=== PATIENT | male | born 1950 | race Caucasian/White ===

== ENCOUNTER 2017-08-06 20:11 | Inpatient (IN) | payer MEDICARE ==
[2017-08-06 21:19] LABS: BASO % 0.4 % (0.0-2.0); EOS % 0.1 % (0.0-4.0); HEMATOCRIT 39.9 % (35.0-51.0); LYMPH # 1.2 K/uL (1.0-4.3); LYMPH % 14.8 % (20.0-40.0); MEAN CELL VOLUME 90.1 fl (80.0-94.0); MEAN CORPUSCULAR HEMOGLOBIN 30.1 pg (27.0-31.0); MEAN CORPUSCULAR HGB CONC 33.4 g/dL (33.0-37.0); MEAN PLATELET VOLUME 6.8 fl (7.2-11.7); MONO # 1.1 K/uL (0.0-0.8); MONO % 14.2 % (0.0-10.0); NEUT # 5.5 K/uL (1.8-7.0); NEUT % 70.5 % (50.0-75.0); RED CELL DISTRIBUTION WIDTH 13.1 % (11.5-14.5); WHITE BLOOD COUNT 7.8 K/uL (4.8-10.8)
--- NOTE | 2017-08-06 21:21 | ED PDOC ---
HPI: Male Pain Time Seen by Provider: 08/06/17 20:17 Chief Complaint (Nursing): Male Genitourinary Chief Complaint (Provider): Urinary Retention History Per: Patient History/Exam Limitations: no limitations Onset/Duration Of Symptoms: Days (x 8) Current Symptoms Are (Timing): Still Present Additional Complaint(s): 67 year old male with a past medical history of prostate disease presents to the ED with urinary retention onset 8 days. He reports increasing difficulty urinating, increasing lower abdomen discomfort and flank pain. He previously had to have a Luo catheter in place and has not had issues with prostate disease in a few years. Noticed hematuria in the last two days. Patient's last urine output was bloody at 19:30. He states that "it just spills out". Denies fever, chills, nausea, vomiting, diarrhea and constipation. PMD: Dr. Jesse Almodovar MD Past Medical History Reviewed: Historical Data, Nursing Documentation, Vital Signs Vital Signs: Last Vital Signs Temp 97.6 F 08/06/17 20:26 Pulse 104 H 08/06/17 20:26 Resp 18 08/06/17 20:26 BP 131/90 08/06/17 20:26 Pulse Ox 96 08/06/17 20:26 - Medical History PMH: Atrial Fibrillation, Diabetes, HTN Other PMH: prostate disease - Family History Family History: States: Hypertension - Social History Current smoker - smoking cessation education provided: No Alcohol: None Drugs: Denies - Allergies Allergies/Adverse Reactions: Allergies Allergy/AdvReac Type Severity Reaction Status Date / Time No Known Allergies Allergy Verified 08/06/17 20:26 Review of Systems ROS Statement: Except As Marked, All Systems Reviewed And Found Negative (as per HPI) Constitutional: Negative for: Fever, Chills Gastrointestinal: Positive for: Other (increasing lower abdominal discomfort). Negative for: Nausea, Vomiting, Diarrhea, Constipation Genitourinary Male: Positive for: Hematuria, Other (difficulty urinating) Musculoskeletal: Positive for: Other (flank pain) Physical Exam - Reviewed Nursing Documentation Reviewed: Yes Vital Signs Reviewed: Yes - Physical Exam Appears: Positive for: Non-toxic, In Acute Distress Head Exam: Positive for: ATRAUMATIC, NORMOCEPHALIC Skin: Positive for: Warm, Dry, Pallor Eye Exam: Positive for: EOMI, PERRL ENT: Positive for: Pharynx Is (clear), Other (moist mucus membranes) Neck: Positive for: Painless ROM, Supple Cardiovascular/Chest: Positive for: Chest Non Tender, Tachycardia. Negative for : Murmur Respiratory: Positive for: Normal Breath Sounds. Negative for: Respiratory Distress Gastrointestinal/Abdominal: Positive for: Bowel Sounds, Soft, Tenderness ( suprapubic). Negative for: Mass, Distended, Guarding, Rebound Back: Positive for: L CVA Tenderness (mild), R CVA Tenderness (mild) Extremity: Positive for: Normal ROM. Negative for: Pedal Edema Lymphatic: Negative for: Adenopathy Neurologic/Psych: Positive for: Alert. Negative for: Motor/Sensory Deficits - Laboratory Results Result Diagrams: 08/06/17 21:14 08/06/17 21:14 - ECG O2 Sat by Pulse Oximetry: 96 (RA) Pulse Ox Interpretation: Normal Medical Decision Making Medical Decision Making: Time: 20:40 Impression: urinary retention Differential diagnoses include but are not limited to kidney stones, cystitis, UTI, pyelonephritis Initial Plan: --CMP --Urine dipstick --CBC with differentials --Urine culture --Urinalysis --Urinary catheter inserted. 2100 Pt developed fever in ER. --CT abdomen pelvis without contrast --Rocephin IV 1 gm duplex --Blood culture --Lactic acid, plasma --Tylenol 975 mg PO Accession No. : [id number] Patient Name / ID : EVELYN INMAN / [id number] Exam Date : 08/06/2017 22:18:27 ( Approved ) Study Comment : Sex / Age : M / 67Y Creator : Enoch Merino MD Dictator : Smeller : Mess Attendant Crew : Enoch Merino MD Approver2 : Report Date : 08/06/2017 23:06:00 My Comment : [facility] Division of Radiology [address] [place], [place] [id number] Tel. no. Patient Name: STORM RIVAS Pt. Address: [address] [place] [address] Rec #: [id number] [place] [id number] Ordering Dr: Don STEPHENS, Christel Lindsay Pt HOME Order Location: [facility] : 1950 Male Age: 67 Order #: [id number] Reason for exam: flank pain fever CT Scan ABD PELVIS W/O PO OR IV CONT Exam Date: 08/06/17 This imaging exam was performed at [facility] ADDENDUM Addendum created by Enoch Merino MD on 08/06/2017 11:27:37 PM EST IMPRESSION: 1. Apparent mild asymmetric bladder wall thickening with minimal intraluminal air. Perinephric stranding, nonspecific. Clinical correlation is needed. 2. Moderate LEFT inguinal hernia containing fat and portion of bladder. 3. Incidental/non-acute findings are described above. Initial report created on 08/06/2017 11:06:16 PM EST EXAM: CT Abdomen and Pelvis Without Intravenous Contrast CLINICAL HISTORY: 67 years old, male; Signs and symptoms; Other: Urinary retention; Prior surgery; Surgery date: 6+ months; Surgery type: Prostate surgery; Additional info: Flank pain fever, hematuria x 8days TECHNIQUE: Axial computed tomography images of the abdomen and pelvis without intravenous contrast. All CT scans at this facility use one or more dose reduction techniques, viz.: automated exposure control; ma/kV adjustment per patient size (including targeted exams where dose is matched to indication; i.e. head); or iterative reconstruction technique. Coronal and sagittal reformatted images were created and reviewed. COMPARISON: No relevant prior studies available. FINDINGS: Limitations: Lack of intravenous contrast. Motion artifact - mild. Lower thorax: No acute findings. ABDOMEN: Liver: Unremarkable. Gallbladder and bile ducts: No calcified stones. No ductal dilation. Pancreas: Unremarkable. No ductal dilation. Spleen: No splenomegaly. Adrenals: No mass. Kidneys and ureters: Mild stranding about kidneys. No renal calculi. Mild pelviectasis of both kidneys. Stomach and bowel: Scattered diverticula within colon. No associated inflammatory stranding. No definite mural thickening. No obstruction. Appendix: Normal caliber. No inflammation. PELVIS: Bladder: Luo catheter. Small amount of air within lumen. Apparent mild asymmetric bladder wall thickening. Incomplete distention, limiting evaluation. No stones. Reproductive: Mildly enlarged prostate. ABDOMEN and PELVIS: Intraperitoneal space: No significant fluid collection. No free air. Bones/joints: Degenerative changes of spine. No acute fracture. Soft tissues: Small RIGHT inguinal hernia containing fat. Small RIGHT spigelian hernia containing fat. Tiny LEFT spigelian hernia containing fat. Moderate LEFT inguinal hernia containing fat and portion of bladder. Surgical clips about LEFT lower quadrant/inguinal region. Vasculature: Unremarkable. No aneurysm. Lymph nodes: No pathologically enlarged lymph nodes. IMPRESSION: 1. Apparent mild asymmetric bladder wall thickening with minimal intraluminal air. Perinephric stranding, nonspecific. Clinical correlation is needed. 2. Moderate LEFT ovary containing fat and portion of bladder. 3. Incidental/non-acute findings are described above. Addendum Dictated By: Enoch Merino MD Addendum Dictated Date Time:08/06/1712/18/2326 Addendum Signed by:Enoch Merino MD Addendum signed Date Time: 08/06/172326 Addendum Transcribed By: ANABELLE Addendum Transcribed Date Time: 08/06/1712/18/2326 ACYP02/VRD Pt with UTI and tachycardia with fever, c/w early sepsis. On reeval pt reports he feels relatively the same as on arrival. Will hospitalize for sepsis and UTI/ pyelonephritis. STEPHANIE FOOTE resident. Scribe Attestation: Documented by Sarah Wesley, acting as a scribe for Arpit Jiménez MD Provider Scribe Attestation: All medical record entries made by the Scribe were at my direction and personally dictated by me. I have reviewed the chart and agree that the record accurately reflects my personal performance of the history, physical exam, medical decision making, and the department course for this patient. I have also personally directed, reviewed, and agree with the discharge instructions and disposition Disposition - Clinical Impression Clinical Impression: Sepsis, Urinary tract infection, Urinary retention, Pyelonephritis Counseled Patient/Family Regarding: Studies Performed, Diagnosis - Disposition Disposition: Routine/Home Disposition Time: 23:00 Condition: FAIR Forms: ybuy (Afghan) - Pt Status Changed To: Hospital Disposition Of: Inpatient - Admit Certification Admit to Inpatient:: After my assessment, the patient will require hospitalization for at least two midnights. This is because of the severity of symptoms shown, intensity of services needed, and/or the medical risk in this patient being treated as an outpatient. - POA Present On Arrival: None
[2017-08-06 21:32] LABS: ALB/GLOB RATIO 1.1 (1.0-2.1); ALKALINE PHOSPHATASE 72 U/L (38-126); ALT/SGPT 34 U/L (21-72); AST/SGOT 25 U/L (17-59); BILIRUBIN,TOTAL 0.7 mg/dl (0.2-1.3); BLOOD UREA NITROGEN 16 mg/dl (9-20); CALCIUM 8.6 mg/dL (8.4-10.2); CARBON DIOXIDE 25 mmol/L (22-30); CHLORIDE 100 mmol/L (98-107); GFR AFRICAN-AMERICAN > 60; GLUCOSE,RANDOM 104 mg/dL (75-110); POTASSIUM 3.7 MMOL/L (3.6-5.0); SODIUM 137 mmol/l (132-148); TOTAL PROTEIN 7.2 G/DL (6.3-8.2)
[2017-08-06] MEDS ORDERED: cefTRIAXone IV 1 gm in Dextros 50 ML IVPB STA (21:33)
[2017-08-06] MEDS ORDERED: Sodium Chloride 0.9% 500 ML IV STA (21:34)
[2017-08-06 22:00] LABS: RBC URINE 11 /hpf (0-3); URINE BACTERIA MANY (<OCC); URINE BILIRUBIN NEGATIVE (NEGATIVE); URINE BLOOD LARGE (NEGATIVE); URINE COLOR YELLOW (YELLOW); URINE GLUCOSE (UA) NEG (Normal); URINE KETONE TRACE mg/dL (NEGATIVE); URINE LEUKOCYTE ESTERASE LARGE Leu/uL (Negative); URINE PROTEIN 30 mg/dL (NEGATIVE); URINE UROBILINOGEN 0.2-1.0 mg/dL (0.2-1.0); WBC URINE 47 /hpf (0-5)
[2017-08-06] MEDS ORDERED: cefTRIAXone IV 1 gm in Dextros 50 ML IVPB ONE (22:00)
--- NOTE | 2017-08-06 23:06 | CT ---
EXAM: CT Abdomen and Pelvis Without Intravenous Contrast CLINICAL HISTORY: 67 years old, male; Signs and symptoms; Other: Urinary retention; Prior surgery; Surgery date: 6+ months; Surgery type: Prostate surgery; Additional info: Flank pain fever, hematuria x 8days TECHNIQUE: Axial computed tomography images of the abdomen and pelvis without intravenous contrast. All CT scans at this facility use one or more dose reduction techniques, viz.: automated exposure control; ma/kV adjustment per patient size (including targeted exams where dose is matched to indication; i.e. head); or iterative reconstruction technique. Coronal and sagittal reformatted images were created and reviewed. COMPARISON: No relevant prior studies available. FINDINGS: Limitations: Lack of intravenous contrast. Motion artifact - mild. Lower thorax: No acute findings. ABDOMEN: Liver: Unremarkable. Gallbladder and bile ducts: No calcified stones. No ductal dilation. Pancreas: Unremarkable. No ductal dilation. Spleen: No splenomegaly. Adrenals: No mass. Kidneys and ureters: Mild stranding about kidneys. No renal calculi. Mild pelviectasis of both kidneys. Stomach and bowel: Scattered diverticula within colon. No associated inflammatory stranding. No definite mural thickening. No obstruction. Appendix: Normal caliber. No inflammation. PELVIS: Bladder: Luo catheter. Small amount of air within lumen. Apparent mild asymmetric bladder wall thickening. Incomplete distention, limiting evaluation. No stones. Reproductive: Mildly enlarged prostate. ABDOMEN and PELVIS: Intraperitoneal space: No significant fluid collection. No free air. Bones/joints: Degenerative changes of spine. No acute fracture. Soft tissues: Small RIGHT inguinal hernia containing fat. Small RIGHT spigelian hernia containing fat. Tiny LEFT spigelian hernia containing fat. Moderate LEFT inguinal hernia containing fat and portion of bladder. Surgical clips about LEFT lower quadrant/inguinal region. Vasculature: Unremarkable. No aneurysm. Lymph nodes: No pathologically enlarged lymph nodes. IMPRESSION: 1. Apparent mild asymmetric bladder wall thickening with minimal intraluminal air. Perinephric stranding, nonspecific. Clinical correlation is needed. 2. Moderate LEFT ovary containing fat and portion of bladder. 3. Incidental/non-acute findings are described above.
--- NOTE | 2017-08-07 00:18 | CP.PCM.HP ---
History of Present Illness - History of Present Illness History of Present Illness: 67 year old male with PMH of atrial fibrillation, BPH presented with complaint of 8 days of hematuria, with associated urinary frequency and dysuria as well as difficulty urinating. First episode of hematuria was eight days ago, intially gross blood, now with normalized color in ED. Reports still had hematuria this morning . Two days ago began having urinary frequency and dysuria with persistent hematuria. He was straining to void, with feeling of incomplete bladder emptying. Denies having fevers, chills, abdominal pain, back pain, flank pain, night sweats, nausea or vomiting. No difficulty urinating or nocturia prior to onset of hematuria. Does not smoke. He takes metoprolol and losartan for his BP. Patient reports history of TURP x 2 over 10 years ago. Urologist then was Dr. Whitney, last appt was in 2004. PMD: Dr. Almodovar Manufacturing Team Leader: Dr. Sumner Urologist: Dr. Whitney PMH: HTN, AFib, BPH Medications: Metoprolol, Losartan Allergies: NKDA Social: denies tobacco/illicit drugs, +social etoh use Family Hx: Father, mother and siblings: all reported to have some type of cancer ; not sure of their diagnoses. Surgical hx: TURP x 2 code status: full code. Present on Admission - Present on Admission Any Indicators Present on Admission: No Review of Systems - Constitutional Constitutional: absent: Chills, Fever, Weakness - EENT Eyes: absent: Blurred Vision Ears: absent: Dizziness - Cardiovascular Cardiovascular: absent: Chest Pain, Dyspnea, Palpitations, Pedal Edema - Gastrointestinal Gastrointestinal: absent: Abdominal Pain, Diarrhea, Nausea, Vomiting - Genitourinary Genitourinary: Dysuria, Hematuria, Nocturia, Urinary Frequency, Urinary Urgency , Hx /Renal Surgery. absent: Flank Pain, Bladder Distension - Musculoskeletal Musculoskeletal: absent: Muscle Weakness - Neurological Neurological: absent: Dizziness, Headaches Past Patient History - Infectious Disease Hx of Infectious Diseases: None - Tetanus Immunizations Tetanus Immunization: Unknown - Past Social History Alcohol: None Drugs: Denies - CARDIAC Hx Atrial Fibrillation: Yes Hx Hypertension: Yes - PSYCHIATRIC Hx Substance Use: No - SURGICAL HISTORY Hx Surgeries: Yes Other/Comment: Hx TURP 1996 - ANESTHESIA Hx Anesthesia: Yes Hx Anesthesia Reactions: No Hx Malignant Hyperthermia: No Meds Allergies/Adverse Reactions: Allergies Allergy/AdvReac Type Severity Reaction Status Date / Time No Known Allergies Allergy Verified 08/06/17 20:26 Physical Exam - Constitutional Appears: No Acute Distress - Head Exam Head Exam: ATRAUMATIC, NORMAL INSPECTION, NORMOCEPHALIC - Eye Exam Eye Exam: EOMI, Normal appearance, PERRL - ENT Exam ENT Exam: Mucous Membranes Moist, Normal Exam - Respiratory Exam Respiratory Exam: Clear to Auscultation Bilateral, NORMAL BREATHING PATTERN. absent: Decreased Breath Sounds, Prolonged Expiratory Phase, Rales, Rhonchi, Wheezes - Cardiovascular Exam Cardiovascular Exam: REGULAR RHYTHM, RRR, +S1, +S2 - GI/Abdominal Exam GI & Abdominal Exam: Hypoactive Bowel Sounds, Soft. absent: Distended, Guarding , Tenderness Additional comments: jenkins bag: draining clear yellow urine - Rectal Exam Rectal Exam: Deferred - Extremities Exam Extremities exam: Negative for: joint swelling, pedal edema - Back Exam Back exam: NORMAL INSPECTION. absent: CVA tenderness (L), CVA tenderness (R), rash noted - Neurological Exam Neurological exam: Alert, CN II-XII Intact, Oriented x3 - Psychiatric Exam Psychiatric exam: Normal Affect, Normal Mood - Skin Skin Exam: Dry, Intact, Normal Color, Warm Results - Vital Signs Recent Vital Signs: Last Vital Signs Temp 99.8 F H 08/06/17 23:21 Pulse 89 08/06/17 23:21 Resp 18 08/06/17 23:21 BP 112/70 08/06/17 23:21 Pulse Ox 96 08/06/17 23:58 - Labs Result Diagrams: 08/06/17 21:14 08/06/17 21:14 Labs: Laboratory Results - last 24 hr 08/06/17 08/06/17 08/06/17 21:14 21:14 21:40 WBC 7.8 RBC 4.43 Hgb 13.3 Hct 39.9 MCV 90.1 MCH 30.1 MCHC 33.4 RDW 13.1 Plt Count 248 MPV 6.8 L Neut % (Auto) 70.5 Lymph % (Auto) 14.8 L Howard % (Auto) 14.2 H Eos % (Auto) 0.1 Baso % (Auto) 0.4 Neut # 5.5 Lymph # 1.2 Howard # 1.1 H Eos # 0.0 Baso # 0.0 Sodium 137 Potassium 3.7 Chloride 100 Carbon Dioxide 25 Anion Gap 16 BUN 16 Creatinine 0.9 Est GFR ( Amer) > 60 Est GFR (Non-Af Amer) > 60 Random Glucose 104 Lactic Acid Calcium 8.6 Total Bilirubin 0.7 AST 25 ALT 34 Alkaline Phosphatase 72 Total Protein 7.2 Albumin 3.8 Globulin 3.4 Albumin/Globulin Ratio 1.1 Urine Color Yellow Urine Clarity Cloudy Urine pH 6.0 Ur Specific [place] 1.006 Urine Protein 30 Urine Glucose (UA) Neg Urine Ketones Trace Urine Blood Large Urine Nitrate Positive H Urine Bilirubin Negative Urine Urobilinogen 0.2-1.0 Ur Leukocyte Esterase Large Urine RBC (Auto) 11 H Urine Microscopic WBC 47 H Urine Bacteria Many H 08/06/17 23:50 WBC RBC Hgb Hct MCV MCH MCHC RDW Plt Count MPV Neut % (Auto) Lymph % (Auto) Howard % (Auto) Eos % (Auto) Baso % (Auto) Neut # Lymph # Howard # Eos # Baso # Sodium Potassium Chloride Carbon Dioxide Anion Gap BUN Creatinine Est GFR ( Amer) Est GFR (Non-Af Amer) Random Glucose Lactic Acid 0.7 Calcium Total Bilirubin AST ALT Alkaline Phosphatase Total Protein Albumin Globulin Albumin/Globulin Ratio Urine Color Urine Clarity Urine pH Ur Specific [place] Urine Protein Urine Glucose (UA) Urine Ketones Urine Blood Urine Nitrate Urine Bilirubin Urine Urobilinogen Ur Leukocyte Esterase Urine RBC (Auto) Urine Microscopic WBC Urine Bacteria - Imaging and Cardiology CT scan - abdomen Status: Image reviewed by me, Report reviewed by me Additional comment: CT Scan ABD PELVIS W/O PO OR IV CONT Exam Date: 08/06/17 This imaging exam was performed at [facility] ADDENDUM Addendum created by Enoch Merino MD on 08/06/2017 11:27:37 PM EST IMPRESSION: 1. Apparent mild asymmetric bladder wall thickening with minimal intraluminal air. Perinephric stranding, nonspecific. Clinical correlation is needed. 2. Moderate LEFT inguinal hernia containing fat and portion of bladder. 3. Incidental/non-acute findings are described above. Initial report created on 08/06/2017 11:06:16 PM EST EXAM: CT Abdomen and Pelvis Without Intravenous Contrast CLINICAL HISTORY: 67 years old, male; Signs and symptoms; Other: Urinary retention; Prior surgery; Surgery date: 6+ months; Surgery type: Prostate surgery; Additional info: Flank pain fever, hematuria x 8days TECHNIQUE: Axial computed tomography images of the abdomen and pelvis without intravenous contrast. All CT scans at this facility use one or more dose reduction techniques, viz.: automated exposure control; ma/kV adjustment per patient size (including targeted exams where dose is matched to indication; i.e. head); or iterative reconstruction technique. Coronal and sagittal reformatted images were created and reviewed. COMPARISON: No relevant prior studies available. FINDINGS: Limitations: Lack of intravenous contrast. Motion artifact - mild. Lower thorax: No acute findings. ABDOMEN: Liver: Unremarkable. Gallbladder and bile ducts: No calcified stones. No ductal dilation. Pancreas: Unremarkable. No ductal dilation. Spleen: No splenomegaly. Adrenals: No mass. Kidneys and ureters: Mild stranding about kidneys. No renal calculi. Mild pelviectasis of both kidneys. Stomach and bowel: Scattered diverticula within colon. No associated inflammatory stranding. No definite mural thickening. No obstruction. Appendix: Normal caliber. No inflammation. PELVIS: Bladder: Jenkins catheter. Small amount of air within lumen. Apparent mild asymmetric bladder wall thickening. Incomplete distention, limiting evaluation. No stones. Reproductive: Mildly enlarged prostate. ABDOMEN and PELVIS: Intraperitoneal space: No significant fluid collection. No free air. Bones/joints: Degenerative changes of spine. No acute fracture. Soft tissues: Small RIGHT inguinal hernia containing fat. Small RIGHT spigelian hernia containing fat. Tiny LEFT spigelian hernia containing fat. Moderate LEFT inguinal hernia containing fat and portion of bladder. Surgical clips about LEFT lower quadrant/inguinal region. Vasculature: Unremarkable. No aneurysm. Lymph nodes: No pathologically enlarged lymph nodes. IMPRESSION: 1. Apparent mild asymmetric bladder wall thickening with minimal intraluminal air. Perinephric stranding, nonspecific. Clinical correlation is needed. 2. Moderate LEFT ovary containing fat and portion of bladder. 3. Incidental/non-acute findings are described above. Addendum Dictated By: Enoch Merino MD Addendum Dictated Date Time:08/06/1712/18/2326 Addendum Signed by:Enoch Merino MD Addendum signed Date Time: 08/06/172326 Addendum Transcribed By: ANABELLE Addendum Transcribed Date Time: 08/06/1712/18/2326 ACYP02/SARAH BETH EXAM: CT Abdomen and Pelvis Without Intravenous Contrast CLINICAL HISTORY: 67 years old, male; Signs and symptoms; Other: Urinary retention; Prior surgery; Surgery date: 6+ months; Surgery type: Prostate surgery; Additional info: Flank pain fever, hematuria x 8days TECHNIQUE: Axial computed tomography images of the abdomen and pelvis without intravenous contrast. All CT scans at this facility use one or more dose reduction techniques, viz.: automated exposure control; ma/kV adjustment per patient size (including targeted exams where dose is matched to indication; i.e. head); or iterative reconstruction technique. Coronal and sagittal reformatted images were created and reviewed. COMPARISON: No relevant prior studies available. FINDINGS: Limitations: Lack of intravenous contrast. Motion artifact - mild. Lower thorax: No acute findings. ABDOMEN: Liver: Unremarkable. Gallbladder and bile ducts: No calcified stones. No ductal dilation. Pancreas: Unremarkable. No ductal dilation. Spleen: No splenomegaly. Adrenals: No mass. Kidneys and ureters: Mild stranding about kidneys. No renal calculi. Mild pelviectasis of both kidneys. Stomach and bowel: Scattered diverticula within colon. No associated inflammatory stranding. No definite mural thickening. No obstruction. Appendix: Normal caliber. No inflammation. PELVIS: Bladder: Jenkins catheter. Small amount of air within lumen. Apparent mild asymmetric bladder wall thickening. Incomplete distention, limiting evaluation. No stones. Reproductive: Mildly enlarged prostate. ABDOMEN and PELVIS: Intraperitoneal space: No significant fluid collection. No free air. Bones/joints: Degenerative changes of spine. No acute fracture. Soft tissues: Small RIGHT inguinal hernia containing fat. Small RIGHT spigelian hernia containing fat. Tiny LEFT spigelian hernia containing fat. Moderate LEFT inguinal hernia containing fat and portion of bladder. Surgical clips about LEFT lower quadrant/inguinal region. Vasculature: Unremarkable. No aneurysm. Lymph nodes: No pathologically enlarged lymph nodes. IMPRESSION: 1. Apparent mild asymmetric bladder wall thickening with minimal intraluminal air. Perinephric stranding, nonspecific. Clinical correlation is needed. 2. Moderate LEFT ovary containing fat and portion of bladder. 3. Incidental/non-acute findings are described above. Dictated By: Enoch Merino MD Dictated Date/Time: 08/06/172305 Signed By: Enoch Merino MD Date Signed: [id number] Transcribed By: ANABELLE Transcribe Date/Time : 08/06/172305 ACYP02/SARAH BETH Assessment & Plan (1) Complicated UTI (urinary tract infection) Assessment and Plan: 67 year old male with PMH of HTN, AFIB, BPH s/p TURP x 2 presented with hematuria x 8 days with associated urinary frequency and dysuria, admitted with complicated UTI and difficulty urinating. No back or flank pain. Pt afebrile. Unlikely pyelonephritis or cystitis. No history of prostate or bladder CA, however hematuria is concerning. Labs and CT abdomen reviewed. No leukocytosis, anemia or renal calculi, no hydronephrosis, + mild perinephric stranding Patient was febrile in ED with TMAX: 101.7, HR: 104, UA + Nitrite, +Leukocyte esterase: Large, WBC: 47. RBC: 11. Lactic ACid: 0.7 Patient given one dose of rocephin in ED. Start treatment for complicated UTI with Zosyn. Will likely need urology consult, seen by Dr. Whitney in the past as outpatient Tylenol / Toradol for pain Status: Acute (2) Hematuria Assessment and Plan: etiology unknown, appears to be have improved Status: Acute (3) HTN (hypertension) Assessment and Plan: controlled with toprol xl and losartan Status: Chronic (4) Atrial fibrillation Assessment and Plan: on toprol xl, cardiolgist is Dr. Sumner. not on anticoagulation Status: Chronic (5) DVT prophylaxis Assessment and Plan: scds- pt w/ hematuria Status: Acute
[2017-08-07] MEDS ORDERED: Pneumococcal 23-Valent Vaccine IM ONE (02:53)
[2017-08-07] MEDS: Lactated Ringer's 1,000 ML IV SCH ×4 (03:00→22:45)
[2017-08-07] MEDS ORDERED: Piperacillin/Tazobact 3.375 GM in Dextrose 5% In Water 100 ML IVPB SCH (04:00)
[2017-08-07] MEDS: Piperacillin/Tazobact 3.375 GM in Sodium Chloride 0.9% 100 ML IVPB SCH ×4 (04:50→22:19)
[2017-08-07] MEDS: Metoprolol Succinate 50 mg XL Tab PO SCH (09:06)
[2017-08-08] MEDS: Piperacillin/Tazobact 3.375 GM in Sodium Chloride 0.9% 100 ML IVPB SCH ×4 (03:59→21:37)
[2017-08-08] MEDS: Lactated Ringer's 1,000 ML IV SCH ×3 (03:59→19:56)
[2017-08-08 07:36] LABS: BASO # 0.1 K/uL (0.0-0.2); BASO % 0.8 % (0.0-2.0); EOS % 0.6 % (0.0-4.0); HEMATOCRIT 38.1 % (35.0-51.0); LYMPH # 1.4 K/uL (1.0-4.3); LYMPH % 16.7 % (20.0-40.0); MEAN CORPUSCULAR HEMOGLOBIN 30.2 pg (27.0-31.0); MEAN CORPUSCULAR HGB CONC 32.8 g/dL (33.0-37.0); MEAN PLATELET VOLUME 7.5 fl (7.2-11.7); MONO # 1.7 K/uL (0.0-0.8); MONO % 19.2 % (0.0-10.0); NEUT # 5.4 K/uL (1.8-7.0); NEUT % 62.7 % (50.0-75.0); NRBC % 0.1 % (0.0-0.0); RED CELL DISTRIBUTION WIDTH 13.3 % (11.5-14.5); WHITE BLOOD COUNT 8.6 K/uL (4.8-10.8)
[2017-08-08] MEDS: Metoprolol Succinate 50 mg XL Tab PO SCH (09:11)
--- NOTE | 2017-08-08 10:50 | CP.PCM.PN ---
Objective - Vital Signs/Intake and Output Vital Signs (last 24 hours): Temp Pulse Resp BP Pulse Ox 97.3 F L 70 20 117/69 99 08/08/17 08:17 08/08/17 09:11 08/08/17 08:17 08/08/17 09:11 08/08/17 08:17 Intake and Output: 08/08/17 08/08/17 06:59 18:59 Intake Total 500 1640 Output Total 550 2300 Balance -50 -660 - Medications Medications: Current Medications Acetaminophen (Tylenol 325mg Tab) 650 mg PO Q6 PRN PRN Reason: Fever >100.4 F Last Admin: 08/08/17 00:05 Dose: 650 mg Acetaminophen (Tylenol 325mg Tab) 650 mg PO Q6 PRN PRN Reason: Pain, Mild (1-3) Enoxaparin Sodium (Lovenox) 40 mg SC DAILY [facility] PRN Reason: Protocol Lactated Ringer's (Lactated Ringer's) 1,000 mls @ 100 mls/hr IV .Q10H [facility] Last Admin: 08/08/17 09:12 Dose: Not Given Piperacillin Sod/Tazobactam (Sod 3.375 gm/ Sodium Chloride) 100 mls @ 100 mls/ hr IVPB Q6 [facility] PRN Reason: Protocol Last Admin: 08/08/17 09:10 Dose: 100 mls/hr Ketorolac Tromethamine (Toradol) 15 mg IVP Q6 PRN PRN Reason: Pain, moderate (4-7) Last Admin: 08/07/17 04:58 Dose: 15 mg Losartan Potassium (Cozaar) 50 mg PO DAILY [facility] Last Admin: 08/08/17 09:11 Dose: 50 mg Metoprolol Succinate (Toprol Xl) 50 mg PO DAILY [facility] Last Admin: 08/08/17 09:11 Dose: 50 mg - Labs Labs: 08/08/17 06:30 08/06/17 21:14 Assessment and Plan - Assessment and Plan (Free Text) Assessment: Assessment and Plan: 67 year old male with PMH of HTN, AFIB, BPH s/p TURP x 2 presented with hematuria x 8 days with associated urinary frequency and dysuria, admitted with Pyelonephritis and difficulty urinating. Plan for Urology consult today. #Pyelonephritis -Still spiking fevers intermittently, Tmax 102.5. No CVA tenderness. No urinary symptoms. -No leukocytosis, UA Nitrate positive - C/W Zosyn Day 2 -BCx repeated. UCx + for Gram negative rods, awaiting sensitivities -Abdominal CT: Remarkable for + Mild Perinephric stranding -ID consulted as pt is febrile despite ABX treatment. -Tylenol / Toradol for pain # Urinary retention, acute -Has hx of TURP -Urology consult appreciated, will keep jenkins in place #Hematuria, resolved -Pt appears to have improved -Etiology unknown. Could be due to Will likely need cystoscopy OP -H/H stable #HTN -Normotensive -C/w Metropolol and Losartan #Afibb -Pt mentioned Afibb on admission, no document EKG with arrythmia. EKG done on admission, NSR. -No anticoagulation #DVT -SCD's -Levonox 40mg SC #Diet -Regular Stable Full Code (5) DVT prophylaxis Assessment and Plan: scds- pt w/ hematuria Status: Acute
--- NOTE | 2017-08-08 12:09 | US ---
PROCEDURE: Ultrasound of the Kidneys HISTORY: UTI, recurring fever, back pain COMPARISON: None available. TECHNIQUE: Grayscale imaging was performed. FINDINGS: RIGHT KIDNEY: Measures: 11.9 cm. Normal in size, contour and echogenicity. No stone, solid mass lesion or hydronephrosis visualized. LEFT KIDNEY: Measures: 10.4 cm. Normal in size, contour and echogenicity. No stone, solid mass lesion or hydronephrosis visualized. OTHER FINDINGS: None. IMPRESSION: Normal examination.
--- NOTE | 2017-08-08 12:25 | CARD ---
APPROVED REPORT EKG Measurement Heart [id number] <Conclusion> Normal sinus rhythm Left axis deviation Moderate voltage criteria for LVH, may be normal variant Abnormal ECG
--- NOTE | 2017-08-08 13:09 | RAD ---
PROCEDURE: Radiographs of the Lumbar Spine. HISTORY: back pain COMPARISON: No prior. FINDINGS: BONES: There is mild dextrocurvature in the lumbar spine. There is 4 mm degenerative retrolisthesis of L3 on L4. There is normal lumbar lordosis. There is no acute fracture, spondylolysis or spondylolisthesis. There is mild diffuse bone demineralization. DISC SPACES: There is multilevel degenerative disc disease with anterior osteophytes, reduced disc heights and multilevel facet arthropathy, worse at L3-4 and L4-5. OTHER FINDINGS: There are no pathologic soft tissue calcifications. Both sacroiliac joints are normal the IMPRESSION: No acute fracture or spondylolysis. Multilevel degenerative disc disease, worse at L3-4 and L4-5.
--- NOTE | 2017-08-08 14:17 | CP.PCM.PN ---
Subjective - Date & Time of Evaluation Date of Evaluation: 08/08/17 Time of Evaluation: 07:00 - Subjective Subjective: Pt complained of mild lower back pain. Feels chills overnight. Denies dysuria, abdominal pain, flank pain, n/v, Objective - Vital Signs/Intake and Output Vital Signs (last 24 hours): Temp Pulse Resp BP Pulse Ox 97.3 F L 70 20 117/69 99 08/08/17 08:17 08/08/17 09:11 08/08/17 08:17 08/08/17 09:11 08/08/17 08:17 Intake and Output: 08/08/17 08/08/17 06:59 18:59 Intake Total 500 1640 Output Total 550 3600 Balance -50 -1960 - Medications Medications: Current Medications Acetaminophen (Tylenol 325mg Tab) 650 mg PO Q6 PRN PRN Reason: Fever >100.4 F Last Admin: 08/08/17 00:05 Dose: 650 mg Acetaminophen (Tylenol 325mg Tab) 650 mg PO Q6 PRN PRN Reason: Pain, Mild (1-3) Enoxaparin Sodium (Lovenox) 40 mg SC DAILY [facility] PRN Reason: Protocol Lactated Ringer's (Lactated Ringer's) 1,000 mls @ 100 mls/hr IV .Q10H [facility] Last Admin: 08/08/17 09:12 Dose: Not Given Piperacillin Sod/Tazobactam (Sod 3.375 gm/ Sodium Chloride) 100 mls @ 100 mls/ hr IVPB Q6 [facility] PRN Reason: Protocol Last Admin: 08/08/17 09:10 Dose: 100 mls/hr Ketorolac Tromethamine (Toradol) 15 mg IVP Q6 PRN PRN Reason: Pain, moderate (4-7) Last Admin: 08/07/17 04:58 Dose: 15 mg Losartan Potassium (Cozaar) 50 mg PO DAILY [facility] Last Admin: 08/08/17 09:11 Dose: 50 mg Metoprolol Succinate (Toprol Xl) 50 mg PO DAILY [facility] Last Admin: 08/08/17 09:11 Dose: 50 mg Tamsulosin HCl (Flomax) 0.4 mg PO DAILY [facility] Last Admin: 08/08/17 13:25 Dose: 0.4 mg - Labs Labs: 08/08/17 06:30 08/06/17 21:14 - Constitutional Appears: Well, Non-toxic, No Acute Distress - Head Exam Head Exam: ATRAUMATIC - ENT Exam ENT Exam: Mucous Membranes Dry, Mucous Membranes Moist - Neck Exam Neck Exam: absent: Lymphadenopathy - Respiratory Exam Respiratory Exam: Clear to Ausculation Bilateral, Rales, Wheezes, NORMAL BREATHING PATTERN. absent: Accessory Muscle Use - Cardiovascular Exam Cardiovascular Exam: REGULAR RHYTHM, +S1, +S2. absent: Murmur - GI/Abdominal Exam GI & Abdominal Exam: Soft, Normal Bowel Sounds. absent: Tenderness - Extremities Exam Extremities Exam: absent: Calf Tenderness, Pedal Edema - Back Exam Back Exam: NORMAL INSPECTION. absent: CVA tenderness (L), CVA tenderness (R), paraspinal tenderness - Neurological Exam Neurological Exam: Alert, Awake, Oriented x3 - Psychiatric Exam Psychiatric exam: Normal Mood Assessment and Plan - Assessment and Plan (Free Text) Assessment: 67 year old male with PMH of HTN, AFIB, BPH s/p TURP x 2 presented with hematuria and urinary retention admitted for Pyelonephritis. #Pyelonephritis -no CVA tenderness or urinary symptoms today. Pt was complaining of mild back pain this morning, new onset -Febrile, tmax 102.5. No leukocytosis. UA +nitrates, UCx + Gram NEgative ROds ( prelim) -Abdominal CT- remarkable for perinephric stranding; no hydronephrosis -C/w Zosyn -ID consulted to asses for another source of infection as patient is still spiking fevers despite being on ABX. -Lumbar Xray- no acute findings, degenerative changes -Renal U/S wnl -Cxray wnl #Urinary Retention -Urology consulted for obstructive pathology of bladder and prior hx of TURP -Recommendation per Urologist is to keep jenkins in place -Tamsulosin 0.4mg PO #Hematuria, resolved -Will likely need Cystoscopy OP -H/H stable #HTN -Normotensive -C/w Home meds #Afibb -EKG Sinus Rhythm -As per patient, he had one episode of Paroxysomal Afibb many years ago. Seen by a caridologist but was never placed on any anticoagulant. -ASA 81mg started # Hx of Basal Cell Carcinoma -Pt had surgical excision and followed with a automotive service advisor, Dr. Almodovar. Also followed by his PMD. -No suspicious lesions #DVT ppx -SCD's -Lovenox
[2017-08-08 15:09] LABS: ALB/GLOB RATIO 0.9 (1.0-2.1); ALKALINE PHOSPHATASE 57 U/L (38-126); ALT/SGPT 27 U/L (21-72); AST/SGOT 22 U/L (17-59); BILIRUBIN,TOTAL 0.4 mg/dl (0.2-1.3); BLOOD UREA NITROGEN 9 mg/dl (9-20); CALCIUM 8.1 mg/dL (8.4-10.2); CARBON DIOXIDE 28 mmol/L (22-30); CHLORIDE 100 mmol/L (98-107); GFR AFRICAN-AMERICAN > 60; GLUCOSE,RANDOM 191 mg/dL (75-110); POTASSIUM 4.5 MMOL/L (3.6-5.0); SODIUM 135 mmol/l (132-148); TOTAL PROTEIN 6.3 G/DL (6.3-8.2)
[2017-08-08] MEDS ORDERED: Meropenem 1 GM in Sodium Chloride 0.9% 100 ML IVPB SCH ×2 (17:00→20:00)
--- NOTE | 2017-08-08 19:06 | CON ---
DATE: 08/08/2017 COMPREHENSIVE UROLOGIC CONSULTATION TIME OF CONSULTATION: Roughly around 11 a.m. BRIEF HISTORY: Patient is a 67-year-old male from [place] with more than 17-year history of BPH, intermittently on Flomax, previously followed by Dr. Yo Whitney (Urology), who now presents to [facility] ER with a history of gross hematuria for 10 days and difficulty voiding urine. A Luo catheter was inserted on this patient and the patient was started on IV antibiotics which included Rocephin from the ER and this was changed to Zosyn, which he is currently on. However, the patient has spiked through antibiotics to a temperature of 102.7 with Luo catheter. However, the Luo catheter now is draining completely clear sage urine well without any clots. The patient's abdominal pain and distention has also resolved with the Luo catheter. PAST MEDICAL HISTORY: Positive for hypertension. The patient has not been on any Flomax recently. Abdominopelvic CT done on 08/06/2017 showed mild perinephric stranding on both kidneys. No renal calculi. Mild pelviectasis of both kidneys and apparent mild asymmetric bladder wall thickening with minimal intraluminal air. He also has a tiny left spigelian hernia containing fat and also a small right inguinal hernia containing fat and also a small right spigelian hernia containing fat. FAMILY HISTORY: Positive for breast cancer in his mother. No family history of any prostate cancer. SOCIAL HISTORY: He is a rare social drinker. No history of any tobacco use. ALLERGIES: NO KNOWN ALLERGIES TO ANY MEDICATIONS. PHYSICAL EXAMINATION: GENERAL: He is a well-developed, well-nourished male. He is alert. He is oriented. HEENT: Grossly within normal limits. NECK: Supple. Thyroid nonpalpable. ABDOMEN: Soft, not distended or tender. No CVA tenderness and no suprapubic tenderness at this time with the Luo catheter draining sage urine well. GENITALIA: The patient is non-circumcised with normal glans meatus. Testes are down bilaterally, nontender without any masses. RECTAL: Showed normal rectal tone without fluctuance or masses. Prostate is slightly enlarged, smooth, symmetrical, nontender without nodules or indurations with a palpable median sulcus. EXTREMITIES: Patient has full range of motion of both upper and lower extremities. LABORATORY DATA: Laboratory evaluation on 08/08/2017 on IV antibiotics shows a CBC with a WBC count of 8.6, hemoglobin of 12.5, hematocrit 38.1, and platelet count of 254,000. His chem profile on 08/06/2017 showed a sodium of 137, potassium 3.7, CO2 of 25, BUN and creatinine of 16 and 0.9 respectively with a GFR of greater than 60. Random glucose was 104. Lactic acid was 0.7. Calcium 8.6. Total bilirubin 0.7, AST 25, ALT 34, alkaline phosphatase was 72. PSA was 3.50 which is borderline normal for age 67, on no BPH medications. Urinalysis on 08/06/2017 showed the color was yellow, clarity was cloudy, specific gravity 1.006, protein 30, glucose negative, ketones trace, blood large, nitrites positive, bilirubin negative, leukocyte esterase large, 11 rbc's and 47 wbc's with many bacteria per high-powered field indicating urosepsis. Urine culture done on 08/06/2017 was positive for gram-negative rods. DIAGNOSTIC IMPRESSION: 1. Gross hematuria. 2. Urosepsis. 3. Urinary retention. 4. Benign prostatic hypertrophy. PLAN: For this patient will be to treat the patient with IV antibiotics per Infectious Disease. We will also start the patient back on Flomax 0.4 mg daily for treatment of BPH. The Luo catheter can be discontinued for a trial of voiding when his sepsis is completely resolved and he has a relatively [id number] urinalysis on Flomax. Patient can be seen in office followup in about 2 weeks with or without the Luo catheter. Sha Ballard MD
--- NOTE | 2017-08-08 22:14 | CON ---
INFECTIOUS DISEASE CONSULTATION LOCATION: The patient is presently in room 658, bed 1. HISTORY OF PRESENT ILLNESS: This is a 67-year-old man with past medical history of atrial fibrillation, BPH, who came here with a history of 8 days of hematuria and urinary frequency and dysuria. He has a Luo in now and it is noted that the color is clear. He states during this period of time before the Luo being placed, he had a feeling of not completing his urinating presently is not on any medication. The patient had the TURP done in 2004 over 10 years ago and he was last seen by Dr. Whitney in 2004. PHYSICAL EXAMINATION GENERAL: The patient is alert, cooperative and oriented to time and place. No history of smoking or drugs and he does drink socially. HEENT: Within normal limits. NECK: Supple. LUNGS: Clear. HEART: Irregular. ABDOMEN: Actually, at this time it is soft. Positive bowel sounds. Some minimal right lower quadrant pain. EXTREMITIES: No CCE. No pain. GENITOURINARY: The patient has a Luo in as previously mentioned. VITAL SIGNS: Despite receiving IV Zosyn, the patient is still having some fever. LABORATORY DATA: Labs show micro shows gram-negative rods and the identification is pending. Creatinine is 0.9, GFR is greater than 60. WBC is 8.6, hemoglobin 12.5, platelet count 254. He has a reasonable differential, though he does have 19 monos, which will be okay. ASSESSMENT: At this point in time, maybe a resistant gram-negative loretta. We are awaiting the identification. I have added meropenem to the treatment 1 g IV piggyback q. 12. There is a possibility that the patient passed had a renal stone and passed it and/or has some bladder involvement. We will defer to Urology on the followup care for that. Mahendra Caba MD MTDD
[2017-08-09] MEDS: Piperacillin/Tazobact 3.375 GM in Sodium Chloride 0.9% 100 ML IVPB SCH (04:37)
[2017-08-09] MEDS: Lactated Ringer's 1,000 ML IV SCH (05:00)
[2017-08-09 06:35] LABS: BASO % 0.5 % (0.0-2.0); EOS # 0.1 K/uL (0.0-0.7); EOS % 1.3 % (0.0-4.0); HEMATOCRIT 38.4 % (35.0-51.0); LYMPH # 1.7 K/uL (1.0-4.3); LYMPH % 20.2 % (20.0-40.0); MEAN CORPUSCULAR HEMOGLOBIN 30.4 pg (27.0-31.0); MEAN PLATELET VOLUME 7.3 fl (7.2-11.7); MONO # 1.1 K/uL (0.0-0.8); MONO % 13.1 % (0.0-10.0); NEUT # 5.4 K/uL (1.8-7.0); NEUT % 64.9 % (50.0-75.0); RED CELL DISTRIBUTION WIDTH 13.3 % (11.5-14.5); WHITE BLOOD COUNT 8.3 K/uL (4.8-10.8)
[2017-08-09 07:13] LABS: ALB/GLOB RATIO 0.9 (1.0-2.1); ALKALINE PHOSPHATASE 64 U/L (38-126); ALT/SGPT 37 U/L (21-72); AST/SGOT 22 U/L (17-59); BILIRUBIN,TOTAL 0.5 mg/dl (0.2-1.3); BLOOD UREA NITROGEN 10 mg/dl (9-20); CALCIUM 8.2 mg/dL (8.4-10.2); CARBON DIOXIDE 27 mmol/L (22-30); CHLORIDE 104 mmol/L (98-107); GFR AFRICAN-AMERICAN > 60; GLUCOSE,RANDOM 94 mg/dL (75-110); POTASSIUM 4.4 MMOL/L (3.6-5.0); SODIUM 140 mmol/l (132-148); TOTAL PROTEIN 6.6 G/DL (6.3-8.2)
[2017-08-09] MEDS: Enoxaparin 40 mg Syringe SC SCH (08:50)
[2017-08-09] MEDS: Metoprolol Succinate 50 mg XL Tab PO SCH (08:51)
[2017-08-09] MEDS: Meropenem 1 GM in Sodium Chloride 0.9% 100 ML IVPB SCH ×2 (10:23→21:00)
--- NOTE | 2017-08-09 13:12 | CP.PCM.PN ---
Subjective - Date & Time of Evaluation Date of Evaluation: 08/09/17 Time of Evaluation: 07:00 - Subjective Subjective: No acute overnight events. Seen and evaluated at the bedside. Complains of mild lower back pain when lying down for long periods. Has no problems with ambulating. No oother complaints. Denies n/v abdominal pain, fever, chills. Objective - Vital Signs/Intake and Output Vital Signs (last 24 hours): Temp Pulse Resp BP Pulse Ox 97.8 F 85 20 112/68 98 08/09/17 08:19 08/09/17 08:51 08/09/17 08:19 08/09/17 08:51 08/09/17 08:19 Intake and Output: 08/09/17 08/09/17 06:59 18:59 Intake Total 1500 Output Total 3425 Balance -1925 - Medications Medications: Current Medications Acetaminophen (Tylenol 325mg Tab) 650 mg PO Q6 PRN PRN Reason: Fever >100.4 F Last Admin: 08/08/17 00:05 Dose: 650 mg Acetaminophen (Tylenol 325mg Tab) 650 mg PO Q6 PRN PRN Reason: Pain, Mild (1-3) Aspirin (Aspirin Chewable) 81 mg PO DAILY [facility] Enoxaparin Sodium (Lovenox) 40 mg SC DAILY [facility] PRN Reason: Protocol Last Admin: 08/09/17 08:50 Dose: 40 mg Meropenem 1 gm/ Sodium (Chloride) 100 mls @ 100 mls/hr IVPB Q12@0900,2100 [facility] PRN Reason: Protocol Last Admin: 08/09/17 10:23 Dose: 100 mls/hr Ketorolac Tromethamine (Toradol) 15 mg IVP Q6 PRN PRN Reason: Pain, moderate (4-7) Last Admin: 08/07/17 04:58 Dose: 15 mg Lidocaine (Lidoderm) 1 ea TD DAILY [facility] Losartan Potassium (Cozaar) 25 mg PO DAILY [facility] Metoprolol Succinate (Toprol Xl) 50 mg PO DAILY [facility] Last Admin: 08/09/17 08:51 Dose: 50 mg Tamsulosin HCl (Flomax) 0.4 mg PO DAILY [facility] Last Admin: 08/09/17 08:51 Dose: 0.4 mg - Labs Labs: 08/09/17 05:25 08/09/17 05:25 - Constitutional Appears: Well, Non-toxic, No Acute Distress - Head Exam Head Exam: ATRAUMATIC, NORMAL INSPECTION - ENT Exam ENT Exam: Mucous Membranes Moist - Respiratory Exam Respiratory Exam: Clear to Ausculation Bilateral. absent: Rales, Wheezes - Cardiovascular Exam Cardiovascular Exam: REGULAR RHYTHM, +S1, +S2. absent: Murmur - GI/Abdominal Exam GI & Abdominal Exam: Soft, Normal Bowel Sounds. absent: Tenderness Assessment and Plan - Assessment and Plan (Free Text) Assessment: 67 year old male with PMH of HTN, AFIB, BPH s/p TURP x 2 presented with hematuria and urinary retention admitted for Pyelonephritis, now resolving. #Pyelonephritis, resolving -no CVA tenderness or urinary symptoms today. Pt was complaining of mild back pain this morning, new onset -Afebrile overnight. No leukocytosis. -UA +nitrates, will repeat today. UCx + EColi, sensitivities reviewed -Abdominal CT on admission remarkable for perinephric stranding; no hydronephrosis -Kidney U/S (08/08) unremarkable -Zosyn D/C as per ID. Meropenem started today. -ID consulted to asses for another source of infection as patient is still spiking fevers despite being on ABX. PLAN: Will repeat U/A and consider de-escalating ABX coverage given sensitivity report. Likely switch ABX to PO and D/C tomorrow. Trial of voiding today after patient's 3rd dose of Flomax as per urology's recommendations. #Urinary Retention -Urology consulted appreciated for obstructive pathology of bladder and prior hx of TURP -Recommendation per Urologist is to keep jenkins in place -Tamsulosin 0.4mg PO #Back Pain -no alarming features -Lumbar Xray- no acute findings, degenerative changes -Lidocaine patch administered #Hematuria, resolved -Will likely need Cystoscopy OP -H/H stable #HTN -BP in the loww 100's systolic after starting flomax. Losartan reduced to 25mg PO. -C/w MOtoprolol 50mg PO daily #Afibb -EKG NSR -As per patient, he had one episode of Paroxysomal Afibb many years ago. Seen by a caridologist but was never placed on any anticoagulant. -ASA 81mg started # Hx of Basal Cell Carcinoma -Pt had surgical excision and followed with a stone product fabricator, Dr. Almodovar. Also followed by his PMD. -No suspicious lesions #DVT ppx -SCD's -Lovenox
[2017-08-09] MEDS: Lidocaine 5% Patch TD SCH (13:25)
--- NOTE | 2017-08-09 19:28 | CP.PCM.PN ---
Subjective - Date & Time of Evaluation Date of Evaluation: 08/09/17 Time of Evaluation: 19:20 - Subjective Subjective: I D NOTE AFEBRILE ,RICHARD STILL IN PLACE CULTURE(URINE) SHOWS E.COLI c geronimo sensitivity MICs are excellent for cipro/meropenem as had significant period of hematuria would discuss c NEEED FOR CYSTO WOULD RX AT LEAST FOR 7 DAYS C IV ANTIBIOTICS Objective - Vital Signs/Intake and Output Vital Signs (last 24 hours): Temp Pulse Resp BP Pulse Ox 97.6 F 71 18 113/71 99 08/09/17 16:04 08/09/17 16:04 08/09/17 16:04 08/09/17 16:04 08/09/17 16:04 Intake and Output: 08/09/17 08/10/17 18:59 06:59 Intake Total 1500 Output Total 7025 Balance -5525 - Medications Medications: Current Medications Acetaminophen (Tylenol 325mg Tab) 650 mg PO Q6 PRN PRN Reason: Fever >100.4 F Last Admin: 08/08/17 00:05 Dose: 650 mg Acetaminophen (Tylenol 325mg Tab) 650 mg PO Q6 PRN PRN Reason: Pain, Mild (1-3) Aspirin (Aspirin Chewable) 81 mg PO DAILY [facility] Last Admin: 08/09/17 13:25 Dose: 81 mg Enoxaparin Sodium (Lovenox) 40 mg SC DAILY [facility] PRN Reason: Protocol Last Admin: 08/09/17 08:50 Dose: 40 mg Meropenem 1 gm/ Sodium (Chloride) 100 mls @ 100 mls/hr IVPB Q12@0900,2100 [facility] PRN Reason: Protocol Last Admin: 08/09/17 10:23 Dose: 100 mls/hr Ketorolac Tromethamine (Toradol) 15 mg IVP Q6 PRN PRN Reason: Pain, moderate (4-7) Last Admin: 08/07/17 04:58 Dose: 15 mg Lidocaine (Lidoderm) 1 ea TD DAILY [facility] Last Admin: 08/09/17 13:25 Dose: 1 ea Losartan Potassium (Cozaar) 25 mg PO DAILY [facility] Metoprolol Succinate (Toprol Xl) 50 mg PO DAILY [facility] Last Admin: 08/09/17 08:51 Dose: 50 mg Tamsulosin HCl (Flomax) 0.4 mg PO DAILY [facility] Last Admin: 08/09/17 08:51 Dose: 0.4 mg - Labs Labs: 08/09/17 05:25 08/09/17 05:25
[2017-08-09 20:35] LABS: RBC URINE 7 /hpf (0-3); URINE BACTERIA RARE (<OCC); URINE BILIRUBIN NEGATIVE (NEGATIVE); URINE BLOOD SMALL (NEGATIVE); URINE COLOR YELLOW (YELLOW); URINE GLUCOSE (UA) NEG (Normal); URINE KETONE NEGATIVE (NEGATIVE); URINE LEUKOCYTE ESTERASE SMALL Leu/uL (Negative); URINE PROTEIN NEGATIVE (NEGATIVE); URINE UROBILINOGEN 0.2-1.0 mg/dL (0.2-1.0); WBC URINE 3 /hpf (0-5)
[2017-08-10] MEDS: Enoxaparin 40 mg Syringe SC SCH (08:23)
[2017-08-10] MEDS: Metoprolol Succinate 50 mg XL Tab PO SCH (08:23)
[2017-08-10] MEDS: Lidocaine 5% Patch TD SCH (08:24)
[2017-08-10] MEDS: Meropenem 1 GM in Sodium Chloride 0.9% 100 ML IVPB SCH ×2 (08:29→21:02)
--- NOTE | 2017-08-10 15:31 | CP.PCM.PN ---
Subjective - Date & Time of Evaluation Date of Evaluation: 08/10/17 Time of Evaluation: 08:00 - Subjective Subjective: No acute overnight events. Pt denies dysuria, fever, chills, flank pain. Explained to pt that we would be removing his jenkins today for a trial of void. Pt has no complaints. Objective - Vital Signs/Intake and Output Vital Signs (last 24 hours): Temp Pulse Resp BP Pulse Ox 98.0 F 75 17 111/68 97 08/10/17 07:57 08/10/17 08:23 08/10/17 07:57 08/10/17 08:23 08/10/17 07:57 Intake and Output: 08/10/17 08/10/17 06:59 18:59 Intake Total 2460 Output Total 3100 Balance -640 - Medications Medications: Current Medications Acetaminophen (Tylenol 325mg Tab) 650 mg PO Q6 PRN PRN Reason: Fever >100.4 F Last Admin: 08/08/17 00:05 Dose: 650 mg Acetaminophen (Tylenol 325mg Tab) 650 mg PO Q6 PRN PRN Reason: Pain, Mild (1-3) Aspirin (Aspirin Chewable) 81 mg PO DAILY [facility] Last Admin: 08/10/17 08:24 Dose: 81 mg Enoxaparin Sodium (Lovenox) 40 mg SC DAILY [facility] PRN Reason: Protocol Last Admin: 08/10/17 08:23 Dose: 40 mg Meropenem 1 gm/ Sodium (Chloride) 100 mls @ 100 mls/hr IVPB Q12@0900,2100 [facility] PRN Reason: Protocol Last Admin: 08/10/17 08:29 Dose: 100 mls/hr Lidocaine (Lidoderm) 1 ea TD DAILY [facility] Last Admin: 08/10/17 08:24 Dose: 1 ea Losartan Potassium (Cozaar) 25 mg PO DAILY [facility] Last Admin: 08/10/17 08:23 Dose: 25 mg Metoprolol Succinate (Toprol Xl) 50 mg PO DAILY [facility] Last Admin: 08/10/17 08:23 Dose: 50 mg Tamsulosin HCl (Flomax) 0.4 mg PO DAILY [facility] Last Admin: 08/10/17 08:23 Dose: 0.4 mg - Labs Labs: 08/09/17 05:25 08/09/17 05:25 - Constitutional Appears: Well, Non-toxic - ENT Exam ENT Exam: Mucous Membranes Moist - Respiratory Exam Respiratory Exam: Clear to Ausculation Bilateral. absent: Rales, Wheezes - Cardiovascular Exam Cardiovascular Exam: REGULAR RHYTHM, +S1, +S2. absent: Murmur - GI/Abdominal Exam GI & Abdominal Exam: Soft, Normal Bowel Sounds. absent: Tenderness - Extremities Exam Extremities Exam: absent: Pedal Edema - Back Exam Back Exam: absent: CVA tenderness (L), CVA tenderness (R), paraspinal tenderness - Neurological Exam Neurological Exam: Alert, Awake, Normal Gait, Oriented x3 - Psychiatric Exam Psychiatric exam: Normal Affect Assessment and Plan - Assessment and Plan (Free Text) Assessment: 67 year old male with PMH of HTN, AFIB, BPH s/p TURP x 2 presented with hematuria and urinary retention admitted for Pyelonephritis, now resolving. #Pyelonephritis, resolving -no CVA tenderness or urinary symptoms today. Pt was complaining of mild back pain this morning, new onset -Afebrile overnight. No leukocytosis. -UA +nitrates, will repeat today. UCx + EColi, sensitivities reviewed -Abdominal CT on admission remarkable for perinephric stranding; no hydronephrosis -Kidney U/S (08/08) unremarkable -IV Meropenem 1gm q12 -Repeat U/A- positive RBC's -ID consult appreciated- IV ABX for 7 days total PLAN: Will c/w IV ABX for 2 more days as per ID's recommendation. Jenkins DC'd today. Will monitor for urinary retention. #Urinary Retention -Urology consulted appreciated for obstructive pathology of bladder and prior hx of TURP -Recommendation per Urologist is to keep jenkins in place -Tamsulosin 0.4mg PO -Trial of void today, jenkins removed #Back Pain -Denies today -no alarming features -Lumbar Xray- no acute findings, degenerative changes -Lidocaine patch administered #Hematuria, resolved -Will likely need Cystoscopy OP -H/H stable -Hx of TURP. U/A repeat + RBC, PSA 3.5 (0.892 in 2014). Will likely need OP Urology on DC #HTN -Normotensive -Losartan reduced to 25mg PO. -C/w Metroprolol 50mg PO daily #Afibb -EKG NSR -As per patient, he had one episode of Paroxysomal Afibb many years ago. Seen by a caridologist but was never placed on any anticoagulant. -ASA 81mg started # Hx of Basal Cell Carcinoma -Pt had surgical excision and followed with a community support specialist, Dr. Almodovar. Also followed by his PMD. -No suspicious lesions #DVT ppx -SCD's -Lovenox
[2017-08-11] MEDS: Lidocaine 5% Patch TD SCH (08:45)
[2017-08-11] MEDS: Enoxaparin 40 mg Syringe SC SCH (08:45)
[2017-08-11] MEDS: Metoprolol Succinate 50 mg XL Tab PO SCH (08:45)
[2017-08-11] MEDS: Meropenem 1 GM in Sodium Chloride 0.9% 100 ML IVPB SCH ×2 (09:49→21:25)
--- NOTE | 2017-08-11 12:10 | CP.PCM.PN ---
Subjective - Date & Time of Evaluation Date of Evaluation: 08/11/17 Time of Evaluation: 10:05 - Subjective Subjective: Patient seen and examined at bedside. No acute overnight events. Urinating freely, no retention. Pt denies dysuria, fever, chills, flank pain. Patient requires IV abx. Pt has no complaints. Objective - Vital Signs/Intake and Output Vital Signs (last 24 hours): Temp Pulse Resp BP Pulse Ox 97.2 F L 72 18 116/73 97 08/11/17 08:18 08/11/17 08:45 08/11/17 08:18 08/11/17 08:45 08/11/17 08:18 Intake and Output: 08/11/17 08/11/17 06:59 18:59 Intake Total 100 Output Total 1100 Balance -1000 - Medications Medications: Current Medications Acetaminophen (Tylenol 325mg Tab) 650 mg PO Q6 PRN PRN Reason: Fever >100.4 F Last Admin: 08/08/17 00:05 Dose: 650 mg Acetaminophen (Tylenol 325mg Tab) 650 mg PO Q6 PRN PRN Reason: Pain, Mild (1-3) Aspirin (Aspirin Chewable) 81 mg PO DAILY [facility] Last Admin: 08/11/17 08:45 Dose: 81 mg Enoxaparin Sodium (Lovenox) 40 mg SC DAILY [facility] PRN Reason: Protocol Last Admin: 08/11/17 08:45 Dose: 40 mg Meropenem 1 gm/ Sodium (Chloride) 100 mls @ 100 mls/hr IVPB Q12@0900,2100 [facility] PRN Reason: Protocol Last Admin: 08/11/17 09:49 Dose: 100 mls/hr Lidocaine (Lidoderm) 1 ea TD DAILY [facility] Last Admin: 08/11/17 08:45 Dose: 1 ea Losartan Potassium (Cozaar) 25 mg PO DAILY [facility] Last Admin: 08/11/17 08:45 Dose: 25 mg Metoprolol Succinate (Toprol Xl) 50 mg PO DAILY [facility] Last Admin: 08/11/17 08:45 Dose: 50 mg Tamsulosin HCl (Flomax) 0.4 mg PO DAILY [facility] Last Admin: 08/11/17 08:45 Dose: 0.4 mg - Labs Labs: 08/09/17 05:25 08/09/17 05:25 - Constitutional Appears: Well, Non-toxic, No Acute Distress - Head Exam Head Exam: ATRAUMATIC, NORMAL INSPECTION, NORMOCEPHALIC - Eye Exam Eye Exam: Normal appearance - Neck Exam Neck Exam: Normal Inspection - Respiratory Exam Respiratory Exam: Clear to Ausculation Bilateral, NORMAL BREATHING PATTERN - Cardiovascular Exam Cardiovascular Exam: REGULAR RHYTHM, +S1, +S2. absent: Murmur - GI/Abdominal Exam GI & Abdominal Exam: Soft, Normal Bowel Sounds. absent: Tenderness - Extremities Exam Extremities Exam: Normal Inspection - Back Exam Back Exam: NORMAL INSPECTION - Neurological Exam Neurological Exam: Alert, Awake, Oriented x3 - Psychiatric Exam Psychiatric exam: Normal Affect, Normal Mood - Skin Skin Exam: Dry, Intact, Normal Color, Warm Assessment and Plan - Assessment and Plan (Free Text) Assessment: 67 year old male with PMH of HTN, AFIB, BPH s/p TURP x 2 presented with hematuria and urinary retention admitted for Pyelonephritis, improving with IV abx. #Pyelonephritis, improving -no CVA tenderness or urinary symptoms today. -Afebrile. No leukocytosis. -UA +nitrates. UCx + EColi, sensitivities reviewed -Abdominal CT on admission remarkable for perinephric stranding; no hydronephrosis -Kidney U/S (08/08) unremarkable -IV Meropenem 1gm q12 -ID consult appreciated- IV ABX for 7 days total PLAN: Will c/w IV ABX for 1 more days as per ID's recommendation. #Urinary Retention -Urology consulted appreciated for obstructive pathology of bladder and prior hx of TURP -Luo DC'd yesterday, urinating freely. -Tamsulosin 0.4mg PO #Back Pain -Denies today -no alarming features -Lumbar Xray- no acute findings, degenerative changes -Lidocaine patch administered #Hematuria, resolved -Will likely need Cystoscopy OP -H/H stable -Hx of TURP. U/A repeat + RBC, PSA 3.5 (0.892 in 2014). Will likely need OP Urology on DC #HTN -Normotensive -Losartan 25mg PO. -C/w Metroprolol 50mg PO daily #Afib -EKG NSR -As per patient, he had one episode of Paroxysomal Afib many years ago. Seen by a audiology director but was never placed on any anticoagulant. -ASA 81mg started #DVT ppx -SCD's -Lovenox
[2017-08-12 00:17] VITALS: O2SAT 97
[2017-08-12 08:30] VITALS: BP 117/72; PULSE 66; RESP 18; TEMP 97.7
[2017-08-12] MEDS: Meropenem 1 GM in Sodium Chloride 0.9% 100 ML IVPB SCH (08:37)
[2017-08-12] MEDS: Lidocaine 5% Patch TD SCH (08:38)
[2017-08-12] MEDS: Metoprolol Succinate 50 mg XL Tab PO SCH (08:38)
[2017-08-12] MEDS: Enoxaparin 40 mg Syringe SC SCH (08:40)
--- NOTE | 2017-08-12 14:09 | CP.PCM.DIS ---
Provider - Provider Date of Admission: 08/06/17 23:13 Attending physician: Marianela Fox MD Time Spent in preparation of Discharge (in minutes): 30 Hospital Course - Lab Results Lab Results: Micro Results 08/06/17 22:05 Blood-Venous Blood Culture - Final NO GROWTH AFTER 5 DAYS 08/06/17 22:05 Blood-Venous Gram Stain - Final TEST NOT PERFORMED 08/06/17 21:35 Blood-Venous Blood Culture - Final NO GROWTH AFTER 5 DAYS 08/06/17 21:35 Blood-Venous Gram Stain - Final TEST NOT PERFORMED 08/08/17 Unknown Blood Blood Culture - Preliminary NO GROWTH AFTER 4 DAYS 08/09/17 23:00 Urine,Luo Urine Culture - Final No Growth (<1,000 CFU/ML) 08/08/17 08:27 Urine,Luo Urine Culture - Final No Growth (<1,000 CFU/ML) 08/06/17 21:40 Urine,Catheterized Urine Culture - Final Escherichia Coli Most Recent Lab Values WBC 8.3 K/uL (4.8-10.8) 08/09/17 05:25 RBC 4.18 Mil/uL (4.40-5.90) L 08/09/17 05:25 Hgb 12.7 g/dL (12.0-18.0) 08/09/17 05:25 Hct 38.4 % (35.0-51.0) 08/09/17 05:25 MCV 92.0 fl (80.0-94.0) 08/09/17 05:25 MCH 30.4 pg (27.0-31.0) 08/09/17 05:25 MCHC 33.0 g/dL (33.0-37.0) 08/09/17 05:25 RDW 13.3 % (11.5-14.5) 08/09/17 05:25 Plt Count 282 K/uL (130-400) 08/09/17 05:25 MPV 7.3 fl (7.2-11.7) 08/09/17 05:25 Neut % (Auto) 64.9 % (50.0-75.0) 08/09/17 05:25 Lymph % (Auto) 20.2 % (20.0-40.0) 08/09/17 05:25 [place] % (Auto) 13.1 % (0.0-10.0) H 08/09/17 05:25 Eos % (Auto) 1.3 % (0.0-4.0) 08/09/17 05:25 Baso % (Auto) 0.5 % (0.0-2.0) 08/09/17 05:25 Neut # 5.4 K/uL (1.8-7.0) 08/09/17 05:25 Lymph # 1.7 K/uL (1.0-4.3) 08/09/17 05:25 [place] # 1.1 K/uL (0.0-0.8) H 08/09/17 05:25 Eos # 0.1 K/uL (0.0-0.7) 08/09/17 05:25 Baso # 0.0 K/uL (0.0-0.2) 08/09/17 05:25 Sodium 140 mmol/l (132-148) 08/09/17 05:25 Potassium 4.4 MMOL/L (3.6-5.0) 08/09/17 05:25 Chloride 104 mmol/L (98-107) 08/09/17 05:25 Carbon Dioxide 27 mmol/L (22-30) 08/09/17 05:25 Anion Gap 13 (10-20) 08/09/17 05:25 BUN 10 mg/dl (9-20) 08/09/17 05:25 Creatinine 0.9 mg/dl (0.8-1.5) 08/09/17 05:25 Est GFR ( Amer) > 60 08/09/17 05:25 Est GFR (Non-Af Amer) > 60 08/09/17 05:25 Random Glucose 94 mg/dL (75-110) 08/09/17 05:25 Lactic Acid 1.9 MMOL/L (0.7-2.1) 08/08/17 14:40 Calcium 8.2 mg/dL (8.4-10.2) L 08/09/17 05:25 Total Bilirubin 0.5 mg/dl (0.2-1.3) 08/09/17 05:25 AST 22 U/L (17-59) 08/09/17 05:25 ALT 37 U/L (21-72) 08/09/17 05:25 Alkaline Phosphatase 64 U/L (38-126) 08/09/17 05:25 Total Protein 6.6 G/DL (6.3-8.2) 08/09/17 05:25 Albumin 3.2 g/dL (3.5-5.0) L 08/09/17 05:25 Globulin 3.4 gm/dL (2.2-3.9) 08/09/17 05:25 Albumin/Globulin Ratio 0.9 (1.0-2.1) L 08/09/17 05:25 Prostate Specific Ag 3.50 ng/ML (0.00-4.0) 08/07/17 11:55 Procalcitonin 0.35 NG/ML (0.19-0.49) 08/08/17 14:40 Urine Color Yellow (YELLOW) 08/09/17 19:45 Urine Clarity Clear (Clear) 08/09/17 19:45 Urine pH 7.0 (5.0-8.0) 08/09/17 19:45 Ur Specific [place] 1.010 (1.003-1.030) 08/09/17 19:45 Urine Protein Negative mg/dL (NEGATIVE) 08/09/17 19:45 Urine Glucose (UA) Neg mg/dL (Normal) 08/09/17 19:45 Urine Ketones Negative mg/dL (NEGATIVE) 08/09/17 19:45 Urine Blood Small (NEGATIVE) 08/09/17 19:45 Urine Nitrate Negative (NEGATIVE) 08/09/17 19:45 Urine Bilirubin Negative (NEGATIVE) 08/09/17 19:45 Urine Urobilinogen 0.2-1.0 mg/dL (0.2-1.0) 08/09/17 19:45 Ur Leukocyte Esterase Small Randy/uL (Negative) 08/09/17 19:45 Urine RBC (Auto) 7 /hpf (0-3) H 08/09/17 19:45 Urine Microscopic WBC 3 /hpf (0-5) 08/09/17 19:45 Urine Bacteria Rare (<OCC) 08/09/17 19:45 - Hospital Course Hospital Course: Admission Date: 08/06 Discharge Diagnosis: Pyelonephritis Consults: Infectious Disease (Dr. Campos), Urology Hospital Course: Pt is 67 y/o male with PMHx of BPH s/p TURP, HTN admitted to [facility] for Pyelonephritits. Pt was managed with Meropenem for 7 days IV and was hemodynamically stable, afebrile, and asymptomatic on discharge. Additionally patient was having hematuria and urinary retention for the past week so he was evaluated by Urologist Dr. Ballard. Pt was discharged on Flomax, adjusted dose of Losartan. He was strongly advised to follow up with Urology to assess BPH and screen for Bladder malignancy given hematuria. Discharge Medications: Acetaminophen (Tylenol 325mg Tab) 650 mg PO Q6 PRN Aspirin (Aspirin Chewable) 81 mg PO DAILY [facility] Losartan Potassium (Cozaar) 25 mg PO DAILY [facility] (NEW) Metoprolol Succinate (Toprol Xl) 50 mg PO DAILY [facility] Tamsulosin HCl (Flomax) 0.4 mg PO DAILY [facility] (NEW) Condition upon Discharge: Fair Activity: Ambulating w/o assistance Discharge Instructions: Follow up with PMD (Dr. Almodovar) and Urologist. PSA 4 in hospital (last PSA 0.14) . Patient made aware. Discharge Exam - Head Exam Head Exam: ATRAUMATIC, NORMAL INSPECTION, NORMOCEPHALIC - ENT Exam ENT Exam: Mucous Membranes Moist - Respiratory Exam Respiratory Exam: Clear to PA & Lateral. absent: Rales, Wheezes, Respiratory Distress - Cardiovascular Exam Cardiovascular Exam: REGULAR RHYTHM, +S1. absent: Systolic Murmur - GI/Abdominal Exam GI & Abdominal Exam: Normal Bowel Sounds, Soft. absent: Tenderness - Neurological Exam Neurological exam: Alert, Oriented x3 - Psychiatric Exam Psychiatric exam: Normal Affect Discharge Plan - Discharge Medications Prescriptions: Losartan [Cozaar] 25 mg PO DAILY 30 Days #30 tab Tamsulosin [Flomax] 0.4 mg PO DAILY 30 Days #30 cap - Follow Up Plan Condition: FAIR Disposition: HOME/ ROUTINE Instructions: Acute Pyelonephritis (DC), Acute Hematuria (DC) Referrals: Sha Ballard MD [Staff Provider] -
[2017-08-12] MEDS ORDERED: Pneumococcal 23-Valent Vaccine IM ONE (14:17)
--- NOTE | 2017-08-14 09:57 | PQF SEPSIS ---
Dr. Fox Sepsis is documented in ER Physician Documentation Report. After study was pt admitted and treated for a diagnosis of Sepsis? This form is a permanent part of the medical record Clarification of your documentation is requested to better reflect the severity of illness and intensity of treatment of your patient. Indicators present [] Temp < 96.8 or > 100.4 [] WBC count > 12,000/mm3 or <000/mm3 or 10% immature neutrophils [] Heart Rate > 90 [] Respiratory Rate > 20 [] Fever or hypothermia [] Chills [] Positive blood cultures [] Hypotension [] Metabolic acidosis (Elevated lactate level, anion gap or reduced blood pH) [] Acute confusion /Altered Mental Status [] Shock [] Other: [] Location in the medical record that reflects the above clinical findings: [] Treatment Provided: [] PHYSICIAN'S RESPONSE yes pt has sespsis from urine Based on your medical judgment of the clinical indicators outlined above, are you treating this patient for a known or suspected: [] Sepsis / Septicemia Please specify organism if known [] [] SIRS (Systemic Inflammatory Response Syndrome) [] Severe Sepsis (Sepsis with Associated Organ Dysfunction) [] Fever of Unknown Origin [] Other, please indicate: [] [] If Unable to Determine, please check the box, sign and date. Present On Admission (POA) Indicator: [] Present at the time of admission [] Not present at the time of admission [] Clinically Undetermined In responding to this query, please exercise your independent professional judgment. The fact that a question is asked does not imply that any particular answer is desired or expected. Thank you for your clarification on this documentation. If you have any questions please call:[ ] * Thank you, [ ]Chanel Arora mule driver BOOM
== END 2017-08-12 14:58 | disposition home or self-care (01) | DRG 872 ==
LOC: H.ER 20:11 → H.ERHOLD 23:13 → H.MEDSURG1 08-07 01:56
PROVIDERS: ADMIT Family Medicine Geriatric Medicine; ATTEND Family Medicine Geriatric Medicine
PROC: 3E0234Z Introduction of Serum, Toxoid and Vaccine into Muscle, Percutaneous Approach (ICD-10-PCS; principal; 2017-08-12)
DX: A41.9 Sepsis, unspecified organism (principal); I48.0 Paroxysmal atrial fibrillation; N12 Tubulo-interstitial nephritis, not specified as acute or chronic; E11.9 Type 2 diabetes mellitus without complications; I10 Essential (primary) hypertension; B96.20 Unspecified Escherichia coli [E. coli] as the cause of diseases classified elsewhere; I48.91 Unspecified atrial fibrillation; Z23 Encounter for immunization; N40.1 Benign prostatic hyperplasia with lower urinary tract symptoms; R31.0 Gross hematuria; R35.0 Frequency of micturition; Z85.828 Personal history of other malignant neoplasm of skin

== ENCOUNTER 2017-12-30 17:32 | Emergency (ER) | payer MEDICARE ==
[2017-12-30 17:43] VITALS: BP 136/78; PULSE 73; RESP 16; TEMP 97.7; O2SAT 99
--- NOTE | 2017-12-30 18:16 | ED PDOC ---
Upper Extremity Pain/Injury Time Seen by Provider: 12/30/17 17:54 Chief Complaint (Nursing): Upper Extremity Problem/Injury Chief Complaint (Provider): Left Shoulder Pain History Per: Patient History/Exam Limitations: no limitations Onset/Duration Of Symptoms: Days Current Symptoms Are (Timing): Still Present Quality: "Pain" Severity: None Additional Complaint(s): 67 year old male presents to the emergency department for evaluation of left shoulder pain. Patient states that yesterday he tripped and fell with his left arm stretched out and head a "pop'. He reports that he has been having pain in his left shoulder ever since. Patient states that he is able to move his arm. Denies any other injury. PMD: Jesse Flornece Past Medical History Reviewed: Historical Data, Nursing Documentation, Vital Signs Vital Signs: Last Vital Signs Temp 97.7 F 12/30/17 17:41 Pulse 73 12/30/17 17:41 Resp 16 12/30/17 17:41 BP 136/78 12/30/17 17:41 Pulse Ox 99 12/30/17 17:41 - Medical History PMH: Atrial Fibrillation, Benign Prostatic Hyperplasia, Diabetes, HTN - Surgical History Surgical History: No Surg Hx - Family History Family History: States: Hypertension - Social History Current smoker - smoking cessation education provided: No Ex-Smoker (has not smoked in the last 12 months): No Alcohol: None Drugs: Denies - Home Medications Home Medications: Ambulatory Orders Medication Instructions Recorded Metoprolol Succinate [Toprol XL] 50 mg PO DAILY 08/06/17 Acetaminophen [Tylenol 325mg tab] 650 mg PO Q6 PRN tab 08/12/17 Aspirin [Aspirin Chewable] 81 mg PO DAILY chew 08/12/17 Losartan [Cozaar] 25 mg PO DAILY 30 Days #30 tab 08/12/17 Metoprolol Succinate [Toprol XL] 50 mg PO DAILY tab 08/12/17 Tamsulosin [Flomax] 0.4 mg PO DAILY 30 Days #30 cap 08/12/17 Naproxen [Naprosyn] 500 mg PO Q12H #20 tab 12/30/17 - Allergies Allergies/Adverse Reactions: Allergies Allergy/AdvReac Type Severity Reaction Status Date / Time No Known Allergies Allergy Verified 12/30/17 17:41 Review of Systems ROS Statement: Except As Marked, All Systems Reviewed And Found Negative Musculoskeletal: Positive for: Shoulder Pain (left) Physical Exam - Reviewed Nursing Documentation Reviewed: Yes Vital Signs Reviewed: Yes - Physical Exam Appears: Positive for: Non-toxic, No Acute Distress Extremity: Positive for: Normal ROM (Full ROM of left shoulder), Other ( abrasion palmar aspect of left hand ; Radial pulse 2/4). Negative for: Deformity (no deformity to left shoulder) Neurologic/Psych: Positive for: Alert, Oriented, Gait. Negative for: Motor/ Sensory Deficits - ECG O2 Sat by Pulse Oximetry: 99 Medical Decision Making Medical Decision Makin Initial impression 67 year old male presenting with left shoulder pain Initial Plan: * RAD left shoulder * Reevaluation Documented by Lidia Dawson acting as a scribe for Kaleb Borja MD. All medical record entries made by the Scribe were at my direction and personally dictated by me. I have reviewed the chart and agree that the record accurately reflects my personal performance of the history, physical exam, medical decision making, and the department course for this patient. I have also personally directed, reviewed, and agree with the discharge instructions and disposition. Disposition - Clinical Impression Clinical Impression: Shoulder sprain - Patient ED Disposition Is Patient to be Admitted: No Counseled Patient/Family Regarding: Studies Performed, Diagnosis, Need For Followup, Rx Given - Disposition Referrals: [facility] [Outside] Disposition: Routine/Home Disposition Time: 18:36 Condition: FAIR Prescriptions: Naproxen [Naprosyn] 500 mg PO Q12H #20 tab Instructions: Shoulder Sprain Forms: [employer] (Mongolian)
--- NOTE | 2017-12-31 07:37 | RAD ---
PROCEDURE: Radiographs of the Left Shoulder HISTORY: trauma COMPARISON: No prior. FINDINGS: BONES: There is a tiny 1-2 mm calcific density identified superior to the left humeral head select only in the frontal view with the humerus in mild medial rotation. This may represent soft tissue calcification as it appears well corticated in its peripheral margins or even a tiny joint mouse. The latter is not favored. Is not felt to represent a fracture. JOINTS: Moderate degenerative changes seen the glenohumeral and acromioclavicular joints. No subluxation or dislocation appreciated. SOFT TISSUES: As above. OTHER FINDINGS: None. IMPRESSION: No definite acute fracture, subluxation or dislocation degenerative changes seen the acromioclavicular and glenohumeral joints with probable calcific tendinosis or tiny mouse noted superior to the left humeral head as discussed above.
== END 2017-12-30 18:59 | disposition home or self-care (01) ==
LOC: H.ER 17:32
DX: S43.402A Unspecified sprain of left shoulder joint, initial encounter (principal); W19.XXXA Unspecified fall, initial encounter; Y92.89 Other specified places as the place of occurrence of the external cause
CPT/HCPCS: 73030; 96372; 99284; J1885